=== PATIENT | female | born 1950 | race Caucasian/White ===

== ENCOUNTER 2024-11-12 15:38 | Outpatient (CLI) | payer MEDICARE, OTHER, SELFPAY ==
--- NOTE | ~2024-11-12 | XR_ITS ---
XR chest 2V 11/12/2024 15:54 Indication: Cough Procedure: 2 view chest Comparison: 12/13/2009 Findings: Mild ectasia of the aorta. Heart size normal. No focal air space disease, pulmonary edema, pleural effusion or suspected pneumothorax. No acute osseous abnormality. Impression: 1: No acute cardiopulmonary disease. Reviewed, dictated and finalized at location A. Impression: 1: No acute cardiopulmonary disease.
--- OUTSIDE RECORDS SUMMARY | 2024-11-12 15:44 | XMS_ITS | Encounter Summary ---
Author Organization [facility] Address [address] [place] [address] Phone Care Team Providers Care Lath Hand Name Role Phone Beto Poon MD Primary Care Provider [phone] Yocasta Aguero NP Unavailable [phone] Juve Ballard MD Unavailable [phone] Encounter Details Date Type Department Care Team (Latest Contact Info) Description 04/16/2022 Orders Only [facility] Scanning, Provider Social History Tobacco Use Types Packs/Day Years Used Date Smoking Tobacco: Never Smokeless Tobacco: Never Alcohol Use Standard Drinks/Week Comments Yes 0 (1 standard drink = 0.6 oz pur e alcohol) Comments No Sex and Gender Information Value Date Recorded Sex Assigned at Not on file Legal Sex Female 1:25 PM CDT Gender Identity Not on file Sexual Orientation Not on file 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 Not on file Not on file Not on f ile documented as of this encounter Plan of Treatment Not on file documented as of this encounter Procedures Procedure Name Priority Date/Time Associated Diagnosis Comments SCAN - RADIOLOGY/IMAGING 04/16/2022 documented in this encounter Results * SCAN - RADIOLOGY/IMAGING (04/16/2022) Anatomical Region Laterality Modality Other us Provider Scanning Final Result documented in this encounter Visit Diagnoses Not on filedocumented in this encounter Care Teams Lath Hand Relationship Specialty Start Date End Date Beto Poon MD [address] [place] [id number] PCP - General 02/19/19 Ycoasta Aguero NP [address] [place] [address] Nurse Practitioner Pulmonary Disease 09/29/24 Juve Ballard MD [address] [facility] [phone] [place] [address] Medical Oncologist/Hematologis t Hematology and Oncology 09/29/24 documented as of this encounter
--- OUTSIDE RECORDS SUMMARY | 2024-11-12 15:44 | XMS_ITS | Clinical Summary ---
Author Organization [facility] Address [address] [place] [address] Care Team Providers Care Wax Cutter Name Role Phone Unavailable Primary Care Provider Unavailabl e Social History Tobacco Use Types Packs/Day Years Used Date Smoking Tobacco: Never Assessed Comments Unknown Sex and Gender Information Value Date Recorded Sex Assigned at Not on file Legal Sex Female 7:09 PM CDT Gender Identity Not on file Sexual Orientation Not on file Plan of Treatment Health Maintenance Due Date Last Done Comments Colorectal Cancer Screening Colonoscopy (10 Years) 1950 Hepatitis C 1968 DTaP, Tdap and Td Vaccines ( 1 - Tdap) 1969 Mammogram Screening 1990 Pneumococcal Vaccine: 50+ Ye ars (1 of 1 - PCV) 2000 Zoster Vaccines (1 of 2) 2000 Dexa Scan (General) 2015 COVID-19 Vaccine ( - 2023-2 5 season) 2024 RSV Immunization or 60+ Years (1 - 1-dose 75+ series) 2025 Meningococcal B Vaccine Aged Out No l onger eligible based on patient's age to complete this topic Meningococcal Vaccine Aged Out No winnie mai eligible based on patient's age to complete this topic RSV Immunizations Under 20 Months Aged Out No longer eligible based on patient's age to complete this topic
--- OUTSIDE RECORDS SUMMARY | 2024-11-12 15:44 | XMS_ITS | Encounter Summary ---
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 Not on file Not on f ile documented as of this encounter Plan of Treatment Not on file documented as of this encounter Procedures Procedure Name Priority Date/Time Associated Diagnosis Comments SCAN - RADIOLOGY/IMAGING 03/19/2022 documented in this encounter Results * SCAN - RADIOLOGY/IMAGING (03/19/2022) Anatomical Region Laterality Modality Other us Provider Scanning Edited Result - Final documented in this encounter Visit Diagnoses Not on filedocumented in this encounter Care Teams Dairy Specialist Relationship Specialty Start Date End Date Beto Poon MD [address] [place] [address] PCP - General 02/19/19 Yocasta Aguero NP [address] [place] [address] Nurse Practitioner Pulmonary Disease 09/29/24 Juve Ballard MD [address] [facility] [phone] [place] [address] Medical Oncologist/Hematologis t Hematology and Oncology 09/29/24 documented as of this encounter
--- OUTSIDE RECORDS SUMMARY | 2024-11-12 15:44 | XMS_ITS | Referral Summary ---
Author Organization [facility] Address [address] [place] [address] Care Team Providers Care Car Rental Manager Name Role Phone Beto Poon MD Primary Care Provider [phone] Yocasta Aguero NP Unavailable [phone] Juve Ballard MD Unavailable Encounters Date Type Department Care Team Description 09/29/2024 9:40 AM CDT - 09/29/2024 11:59 PM CDT Hospital Encounter [facility] [address] [place] [address] Breathing problem Discharge Disposition: Discharge to home or self care 09/29/2024 10:00 AM CDT Office Visit [facility] Pulmonary [address] [facility] [address] [place] [address] [place] [address] Yocasta Aguero NP Chronic cough (Primary Dx); Seasonal allergies; Gastroesophageal reflux disease without esophagitis; Personal history of PE (pulmonary embolism); Immunization counseling 09/29/2024 8:30 AM CDT - 09/29/2024 11:59 PM CDT Hospital Encounter [facility] Pulmonary [address] [facility] [address] [place] [address] Breathing problem Discharge Disposition: Discharge to home or self care 09/24/2024 Orders Only [facility] Scheduling [address] [place] [address] Yocasta Aguero NP Breathing problem (Primary Dx) 09/23/2024 Telephone [facility] Pulmonary [address] [facility] [address] [place] [address] [place] [address] Nabila Kwong RN from Last 3 Months Allergies No known active allergies Medications levothyroxine sodium (TIROSINT) 50 mcg capsule 04/14/2023 Active rivaroxaban (XARELTO) 10 mg tabletIndicatio ns:Personal history of diseases of blood and blood-forming organs Take 1 tablet (10 mg total) by mouth daily Prior to long car rides and flights. 30 tablet 04/08/2024 Active cetirizine (ZyrTEC) 10 mg tablet Take 1 tablet (10 mg total) by mouth nightly 30 tablet 3 09/29/2024 Active famotidine (PEPCID) 40 mg tablet Take 1 tablet (40 mg total) by mouth daily 30 tablet 11 09/29/2024 6 Active dextromethorpha n HBr 10 mg/5 mL liquidIndicatio ns:Cough Take 10 mL by mouth 2 (two) times a day as needed (for cough) 420 mL 3 09/29/2024 Active loratadine (CLARITIN) 10 mg tablet Take 1 tablet (10 mg total) by mouth daily 30 tablet 11 10/13/2024 6 Active Active Problems Problem Noted Date Diagnosed Date Personal history of PE (pulmonary embolism) 03/31 SOB (shortness of breath) 04/10/2023 Chronic pain of right knee 12/19/2018 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 Now s/p SLT OU 10/21/18. Off drops. IOP 20. Ok to continue monitoring closely off latanoprost. RTC 3-4 months with HVF with Dr. Obrien. If VF changes then restart latanoprost especially if IOP in mid-20's. If cataracts have symptoms refer back, consider combined TM procedure if IOP not at goal or using medications. For now if IOP not at goal can redo SLT. Assessment & Plan (10/21/2018 11:55 AM CDT): IOP at goal with medications. Does not like using gtts - busy travel schedule. Recommend SLT OU - continue latanoprost for 2 weeks then stop. F/U 6-8 weeks. Assessment & Plan (06/19/2018 12:12 PM ELECTRONIC COILS SUPERVISOR): - OS poor test - as patient was given poor instructions - early changes on OCT OS - no apd Will get optos disc photos Opts drops (gtts) vs SLT - very active travel schedule Recommend Xal OU QHS - if patient does not tolerate drops (gtts) will do SLT. Assessment & Plan (05/06/2018 10:27 AM ELECTRONIC COILS SUPERVISOR): - Angles Grade 2 with very minimal trabecular meshwork (TM) pigmentation - Given healthy rims, do not recommend treatment unless OCT shows thinning or visual field (VF) changes. Pt lives active lifestyle. Consider primary SLT as well. - will need disc photos after next visit when angles checked on OCT if ok to dilate Leaves country for a week. F/U on return with A-AOCT Gutierrez visual field (HVF)/OCT Pulmonary embolism Immunizations Immunization Administration Dates Next Due Hep A, Adult 11/26/2013,09/19/1998,03/11/1998 Influenza, Quadrivalent, Spl it, Intramuscular 04/28/2020,04/19/2018 Influenza, Trivalent, High D ose, Split, Preservative Free, Intramuscular 04/24/2022,04/08/2021 OPV 01/25/1970 Pneumococcal Conjugate PCV 13 12/16/2017 Td, adsorbed 03/11/1998,11/02/1978 Social History Tobacco Use Types Packs/Day Years Used Date Smoking Tobacco: Never Passive Smoke Exposure: Never Smokeless Tobacco: Never Tobacco Cessation:Counseling Given: Not Answered Alcohol Use Standard Drinks/Week Comments Yes 0 (1 standard drink = 0.6 oz pur e alcohol) Comments No Sex and Gender Information Value Date Recorded Sex Assigned at Not on file Legal Sex Female 1:25 PM CDT Gender Identity Not on file Sexual Orientation Not on file 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 file Not on file Not on f ile Last Filed Vital Signs Vital Sign Reading Time Taken Comments Blood Pressure 125/88 09/29/2024 9:56 AM CDT Pulse 97 09/29/2024 9:56 AM CDT Temperature 36.6 C (97.9 F) 09/29/2024 9:56 AM CDT Respiratory Rate 18 09/29/2024 9:56 AM CDT Oxygen Saturation 97% 09/29/2024 9:56 AM CDT Inhaled Oxygen Concentration - - Weight 82.1 kg (181 lb) 09/29/2024 9:56 AM CDT Height 157.5 cm (5' 2 ) 09/29/2024 9:56 AM CDT Body Mass Index 33.11 09/29/2024 9:56 AM CDT Plan of Treatment Not on file Procedures Procedure Name Priority Date/Time Associated Diagnosis Comments XR CHEST PA LATERAL 2 VIEWS Schedule Routine, Read Routine (OP Routine) 09/29/2024 9:49 AM CDT Breathing problem PULMONARY FUNCTION TEST (PFT) Routine 09/29/2024 9:37 AM CDT Breathing problem SCREENING MAMMOGRAM BILATERAL W DAVIN Schedule Routine, Read Routine (OP Routine) 04/23/2024 2:21 PM CDT Screening mammogram, encounter for from Last 3 Months or Most Recently Relevant to Health Maintenance Results * XR Chest Pa Lateral 2 Views (09/29/2024 9:49 AM CDT) Anatomical Region Laterality Modality Body, Chest N/A Computed Radiogr aphy 09/29/2024 9:51 AM CDT Impressions 09/29/2024 9:51 AM CDT No comparisons are available. The heart size is normal. Lungs are clear. No pleural effusions. No pneumothorax. Anterior wedging compression deformities of the midthoracic spine are present, representing age-indeterminate thoracic compression fractures. Electronically signed by: Bipin Floyd M.D. Narrative 09/29/2024 9:51 AM CDT EXAMINATION: 2 view chest radiograph Procedure Note Bipin Floyd MD - 09/29/2024 EXAMINATION: 2 view chest radiograph IMPRESSION: No comparisons are available. The heart size is normal. Lungs are clear. No pleural effusions. No pneumothorax. Anterior wedging compression deformities of the midthoracic spine are present, representing age-indeterminate thoracic compression fractures. Electronically signed by: Bipin Floyd M.D. Yocasta Aguero EVENT MARKETING ASSISTANT IMG XR PROCEDURES Final Result * Pulmonary Function Test - (09/29/2024 9:37 AM CDT) FVC PRE 2.31 L [facility] FVC %PRE PRED 94 % [facility] FEV1 PRE 1.66 L [facility] FEV1 %PRE PRED 87 % [facility] FEV1/FVC PRE 71.8 % [facility] DLCO PRE 11.1 ml/min/mmH g [facility] DLCO %PRE PRED 62 % [facility] Anatomical Region Laterality Modality PFT 09/29/2024 9:11 AM CDT Narrative 09/29/2024 4:20 PM CDT Table formatting from the original result was not included. [facility] Division of Pulmonary & Critical Care Medicine [address] [place] [address]; [place] [facility]; [place] [address]; [phone] Pulmonary Function Laboratory Pulmonary Stress Test Simple/Oxygen Assessment Patient: Gena Clakr Date: 09/29/2024 : 1950 Ht: 62 IN Wt: 192 LBS Time (min) Distance (ft)/ Ortega O2 L/M SpO2 HR Dione* BP FEV1 % Pred Rest: RA 98 77 3 120/85 1.66 87% Walk/Bike: 1 RA 97 95 3 2 RA 100 94 4 3 RA 99 103 5 4 RA 99 108 5 5 RA 96 110 5 6 min 0 sec RA 99 110 6 Recovery: 1 RA 100 90 3 138/87 1.66 87% 3 RA 100 84 3 *Dione rate of perceived exertion (1-10 dyspnea scale) Juan M, CHEST 2003; [id number] Walk Test Summary: Six Minute Walk Distance: 1425 ft Six-minute Walk Work [distance (m) x body wt (kg)]: 14023 kg.m (normal >60,000kg.m) Oxygen required to maintain SpO2 greater than 90% during six minutes of walkin L/M Comments: O2A- 0 STOPS Interpretation: Breathing room air, SpO2 is normal at rest. During exercise sufficient to increase pulse, SpO2 is stable. On this basis, SpO2 is adequate at rest breathing room air and while walking breathing room air. This level of exercise is associated with no significant change of FEV1. Sami Thurman MD By signing this report, the attending pulmonary physician certifies that he has personally reviewed and interpreted the graphic and numerical data associated with this pulmonary function study and has reviewed and /or edited a preliminary draft report and agrees with the written final report. PFT performed at:->[id number] Procedure:->Oxygen Assessment Titration Procedure:->Spirometry Procedure:->DLCO DLCO:->Spirometry Pulmonary Function Test Interpretation SPIROMETRY: Spirometry did not meet standards of acceptability and reproducibility. This diminishes the reliability of the results. The FEV1 and FVC are normal. The FEV1 to FVC ratio is normal. The flow volume loop is normal. DLCO: The diffusing capacity is mildly decreased. A decreased diffusing capacity may be due to loss of pulmonary capillary surface area. Causes include pulmonary fibrosis (altered V/Q relationship), pulmonary vascular disease, emphysema, or interstitial pneumonitis. Note that the value for diffusing capacity is not corrected for hemoglobin and that anemia may decrease the reported value. PULSE OXIMETRY: See Oxygen Assessment/Cardiopulmonary Exercise Study-Simple Impression: There is no ventilatory defect. There is a mild impairment of alveolar gas exchange by DLCO. Compared with most recent study, there has been no significant interval change. Sami Thurman MD The attending pulmonary physician certifies a physician presence in the [facility] Suite during the administration of aerosolized bronchodilator. The attending pulmonary physician certifies that he has reviewed and interpreted the graphic and numerical data of this pulmonary function study and agrees with the written final report. The lower limit of normal for PaO2 and %HbO2 is age dependent. However, the [facility] Pulmonary Function Laboratory defines hypoxemia as a PaO2 <56 mm Hg or a %HbO2 <89%. Starting on July of 2024 the [facility] Pulmonary Function Laboratory utilizes race neutral GLI Global normative equations. us Yocasta Aguero EVENT MARKETING ASSISTANT PFT ORDERABLES Final Result * Screening Mammogram Bilateral W Davin (04/23/2024 2:21 PM CDT) Anatomical Region Laterality Modality Breast Bilateral Mammography Impressions 04/23/2024 6:35 PM CDT BI-RADS ATLAS category (overall): 1 - Negative There is no mammographic evidence of malignancy. A 1 year screening mammogram is recommended. The patient has been or will be contacted. We recommend annual screening mammography for women at average risk of breast cancer beginning at age 40, based on guidelines of the [employer] (ACR Practice Parameter for the Performance of Screening and Diagnostic Mammography) and [employer]. For women with and elevated risk of breast cancer, please refer to the ACR Practice Parameter for specific screening recommendations. The patient will be entered into a reminder system with a target due date of 1 year for her next screening exam. Narrative 04/23/2024 6:35 PM CDT Screening Mammogram Bilateral W Davin: 04/23/24 The study was acquired using full field digital technology and interpreted from soft copy. 2D digital mammographic views, as well as 3D digital tomosynthesis were performed in the CC and MLO projections. CLINICAL: Screening mammogram, encounter for. No relevant medical history has been documented for this patient. No known family history of breast cancer. COMPARISONS: 12/25/2022 Screening Mammogram Bilateral W Davin 12/13/2021 Screening Mammogram Bilateral W Davin 10/27/2020 Screening Mammogram Bilateral W Davin 06/17/2019 Screening Mammogram Bilateral W Davin 02/13/2018 Screening Mammogram Bilateral W Davin 02/05/2017 Screening Mammogram Bilateral W Davin 03/24/2015 Screening Mammogram Bilateral W Davin 02/03/2014 Screening Mammogram 2D Bilateral 12/05/2012 Screening Mammogram 2D Bilateral BREAST TISSUE: There are scattered areas of fibroglandular density. FINDINGS: There is no new suspicious finding in either breast on mammogram. us Self Screening Mammogram IMG MAMMO PROCEDURES Fi nal Result from Last 3 Months or Most Recently Relevant to Health Maintenance Insurance MEDICARE [facility] MEDICARE SUPPLEMENT INSURANCE FOR LIFE MEDICARE [facility] MEDICARE FOR LIFE CIGNA MEDICARE SUPPLEMENT INSURANCE Care Teams Car Rental Manager Relationship Specialty Start Date End Date Beto Poon MD [address] [place] [id number] PCP - General 02/19/19 Yocasta Aguero NP [address] [place] [address] Nurse Practitioner Pulmonary Disease 09/29/24 Juve Ballard MD [address] [facility] [id number] [place] [address] Medical Oncologist/Hematologis t Hematology and Oncology 09/29/24
--- OUTSIDE RECORDS SUMMARY | 2024-11-12 15:44 | XMS_ITS | Clinical Summary ---
Author Organization [facility] Address [address] [place] [address] Care Team Providers Care Steel Rod Buster Name Role Phone Beto Poon MD Primary Care Provider [phone] Yocasta Aguero NP Unavailable [phone] Juve Ballard MD Unavailable [phone] Allergies No known active allergies Medications levothyroxine [...] by mouth daily 30 tablet 11 09/29/2024 Active dextromethorpha n HBr 10 mg/5 mL [...] weeks. Assessment & Plan (06/19/2018 12:12 PM SLIVER MACHINE OPERATOR): - OS poor test - as patient was given poor instructions - early changes on OCT OS - no apd Will get optos disc photos Opts drops (gtts) vs SLT - very active travel schedule Recommend Xal OU QHS - if patient does not tolerate drops (gtts) will do SLT. Assessment & Plan (05/06/2018 10:27 AM SLIVER MACHINE OPERATOR): - Angles Grade 2 with very minimal [...] A-AOCT Gutierrez visual field (HVF)/OCT Pulmonary embolism Encounters Date Type Department Care Team Description 09/29/2024 10:00 AM CDT Office Visit [facility] Pulmonary [address] [facility] [address] [place] [address] [place] [address] Yocasta Aguero NP Chronic cough (Primary Dx); Seasonal allergies; Gastroesophageal reflux disease without esophagitis; Personal history of PE (pulmonary embolism); Immunization counseling 09/29/2024 9:40 AM CDT - 09/29/2024 11:59 PM CDT Hospital Encounter [facility] [address] [place] [address] Breathing problem Discharge Disposition: Discharge to home or self care 09/29/2024 8:30 AM CDT - 09/29/2024 11:59 PM CDT Hospital Encounter [facility] Pulmonary [address] [facility] [address] [place] [address] Breathing problem Discharge Disposition: Discharge to home or self care 09/24/2024 Orders Only [facility] Scheduling [address] [place] [address] Yocasta Aguero NP Breathing problem (Primary Dx) 09/23/2024 Telephone [facility] Pulmonary [address] [facility] [address] [place] [address] [place] [address] Nabila Kwong RN from Last 3 Months Immunizations Immunization Administration Dates Next Due Hep A, Adult 11/26/2013,09/19/1998,03/11/1998 Influenza, Quadrivalent, Spl it, Intramuscular 04/28/2020,04/19/2018 Influenza, Trivalent, High D ose, Split, Preservative Free, Intramuscular 04/24/2022,04/08/2021 OPV 01/25/1970 Pneumococcal Conjugate PCV 13 12/16/2017 Td, adsorbed 03/11/1998,11/02/1978 Surgical History Surgery Date Site/Laterality Comments HYSTERECTOMY REDUCTION MAMMAPLASTY 07/01/1975 - 06/30/1976 Bilateral Medical History Medical History Date Comments Hypercholesteremia Thyroid disease Family History Medical History Relation Name Comments Clotting disorder Father Heart disease Father Stroke Father Arthritis Mother Relation Name Status Comments Father Mother Social History Tobacco Use Types Packs/Day Years [...] 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 Not on file Not on f ile Obstetrics History Para Term AB IAB SAB Ectopic Multiple Livin g Live Births 1 Date Outcome GA Total Labor Labor/2nd/3rd Weight Sex Type Anes PTL Alejandra A1 A5 Name Clin Last Filed Vital Signs Vital Sign Reading [...] 09/29/2024 9:56 AM CDT Plan of Treatment Health Maintenance Due Date Last Done Comments Colon Cancer Screening-Colonoscopy 1950 Depression Screening 1950 Fall Risk Assessment 1950 Hepatitis C Screening 1950 Osteoporosis Screening-Bone Density Scan 1950 Hepatitis B Screening 1968 DTaP/Tdap/Td Vaccine (1 - Tdap) 03/12/1998 8, 11/02/1978 Zoster Vaccine (1 of 2) 2000 Well Visit 65+ 2015 Pneumococcal vaccine 65+ (2 of 2 - PPSV23) 12/16/2018 12/16/2017 Covid-19 Vaccine (2023-2 5 season) 2024 05/08/2024, 07/12/2023, 03/18/2023, Additional history exists Influenza Vaccine (Season Ended) 2025 04/24/2022, 04/08/2021, 04/28/2020, Additional history exists Breast Cancer Screening-Mammogram 04/23/2025 04/23/2024, 12/25/2022, 12/13/2021, Additional history exists Procedures Procedure Name Priority Date/Time Associated Diagnosis [...] signed by: Bipin Floyd M.D. Yocasta Aguero SEAL DELIVERY VEHICLE OFFICER IMG XR PROCEDURES Final Result * Pulmonary Function Test - (09/29/2024 9:37 AM CDT) FVC PRE 2.31 L [facility] FVC %PRE PRED 94 % [facility] FEV1 PRE 1.66 L [facility] FEV1 %PRE PRED 87 % [facility] FEV1/FVC PRE 71.8 % [facility] DLCO PRE 11.1 ml/min/mmH g [facility] DLCO %PRE PRED 62 % [facility] Anatomical Region Laterality Modality PFT 09/29/2024 9:11 AM CDT Narrative 09/29/2024 4:20 PM CDT Table formatting from the original result was not included. [facility] Division of Pulmonary & Critical Care Medicine [address] [place] [address]; [address] [facility]; [place] [address]; [phone] Pulmonary Function Laboratory Pulmonary Stress Test Simple/Oxygen Assessment Patient: Gena Clark Date: 09/29/2024 : 1950 Ht: 62 IN [...] Work [distance (m) x body wt (kg)]: 12457 kg.m (normal >60,000kg.m) Oxygen required to maintain [...] the written final report. PFT performed at:->[facility] Adult PFT Lab- [id number] Procedure:->Oxygen Assessment Titration [...] and %HbO2 is age dependent. However, the [facility] Pulmonary Function Laboratory defines hypoxemia as a PaO2 <56 mm Hg or a %HbO2 <89%. Starting on July of 2024 the [facility] Pulmonary Function Laboratory utilizes race neutral GLI Global normative equations. us Yocasta Aguero SEAL DELIVERY VEHICLE OFFICER PFT ORDERABLES Final Result * Screening Mammogram [...] age 40, based on guidelines of the [employer] (ACR Practice Parameter for the Performance of Screening and Diagnostic Mammography) and [employer]. For women [...] Recently Relevant to Health Maintenance Insurance MEDICARE CIG MEDICARE SUPPLEMENT INSURANCE FOR [facility] MEDICARE [facility] [place] [address] MEDICARE FOR LIFE CIGNA MEDICARE SUPPLEMENT INSURANCE Care Teams Steel Rod Buster Relationship Specialty Start Date End Date Beto Poon MD [address] [place] [id number] PCP - General 02/19/19 Yocasta Aguero NP [address] [place] [address] Nurse Practitioner Pulmonary Disease 09/29/24 Juve Ballard MD [address] [facility] [id number] [place] [address] Medical Oncologist/Hematologis t Hematology and Oncology 09/29/24
--- OUTSIDE RECORDS SUMMARY | 2024-11-12 15:44 | XMS_ITS | Clinical Summary ---
Author Organization [facility] Address [address] [place] [address] Care Team Providers Care Ice Guard Skating Rink Name Role Phone Unavailable Primary Care Provider Unavailabl e Source Comments [facility],non-owned Affiliates and Associated Physician Practices is amultiple site organization consisting of ambulatory clinics and hospital sitesin [place], [place], [place] and [place]. This disclosure is being madepursuant to the Care Everywhere program and may not contain all information available regarding this patient. Last updated 18.[email or web address] Allergies No known active allergies Medications * Be aware that medications may not be up to date on this document. Alwaysverify current medications with the patient. 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 Gender Identity Not on file Sexual Orientation Not on file Last Filed Vital Signs Vital Sign Reading Time Taken Comments Blood Pressure 124/62 02/10/2018 10:45 AM CDT Pulse - - Temperature - - Respiratory Rate - - Oxygen Saturation - - Inhaled Oxygen Concentration - - Weight 77.1 kg (170 lb) 02/10/2018 10:45 AM CDT Height 160 cm (5' 3 ) 02/10/2018 10:45 AM CDT Body Mass Index 30.11 02/10/2018 10:45 AM CDT Plan of Treatment Health Maintenance Due Date Last Done Comments BONE DENSITY TESTING 1950 COLOGUARD (AGES 45-75) - COLON CA SCREENING 1950 COLON MONITORING 1950 COLONOSCOPY - COLON CA SCREENING 1950 CT COLONOGRAPHY - COLON CA SCREENING 1950 Colorectal Cancer Screening 1950 FIT - COLON CA SCREENING 1950 FLEX SIG - COLON CA SCREENING 1950 LIPID TESTING 1950 HEPATITIS C SCREENING 03/27/1968 DTAP/TDAP/TD VACCINES (1 - Tdap) 1969 PNEUMOCOCCAL VACCINE 50+ (1 of 1 - PCV) 2000 ZOSTER VACCINE (1 of 2) 2000 SCREENING FOR DIABETES 02/10/2018 MAMMOGRAM 06/17/2021 06/17/2019, 01/29 (Done Outside Per Report) COVID-19 VACCINE ( - 2023-2 5 season) 2024 DEPRESSION SCREENING 07/01/2024 INFLUENZA VACCINE (Season Ended) 2025 Respiratory Syncytial Virus (RSV) Vaccine Pt: or over 60 yrs (1 - 1-dose 75+ series) 2025 HEPATITIS B VACCINE Aged Out No longe r eligible based on patient's age to complete this topic HIB VACCINE Aged Out No longer eligi ble based on patient's age to complete this topic HPV VACCINE Aged Out No longer eligi ble based on patient's age to complete this topic MENINGOCOCCAL (Group B) VACCINE SHARED DECISION-MAKING Aged Out No longer eligible based on patient's age to complete this topic MENINGOCOCCAL GROUPS A/C/Y/W VACCINE Aged Out No longer eligible based on patient's age to complete this topic Procedures Procedure Name Priority Date/Time Associated Diagnosis Comments MAMMOGRAPHY ORDER Routine 06/17/2019 from Last 3 Months or Most Recently Relevant to Health Maintenance Results * MAMMOGRAPHY ORDER (06/17/2019) Anatomical Region Laterality Modality Mammography us Scanned Document MAMMO ORDERABLES Final Result from Last 3 Months or Most Recently Relevant to Health Maintenance Insurance MEDICARE [facility]
== END 2024-11-12 15:39 | disposition home or self-care (01) ==
LOC: ANHIMG 15:43
PROVIDERS: PCP Family Medicine
DX: R05.9 Cough, unspecified (principal); R06.02 Shortness of breath
CPT/HCPCS: 71046